=== PATIENT | male | born 1960 | race Caucasian/White ===

== ENCOUNTER → 2017-07-19 | Outpatient (CLI) | payer BC, OTHER ==
[~2017-07-19] MED LIST: AMIT10 PO; ATOR10 PO; Bactrim Ds Tab1 EACH PO; CEPH500 PO; DICL25ER; Depo-Testo100 MG/1 M IM; HYDACE5325 PO; LEVFLO250 PO; LISI5 PO; LORA2 PO; Lasix20 MG PO; OXYACE5T PO; OXYC15ER PO; Percocet 5-3251 EACH PO; TAMS.4ER PO; TELM20 PO; VERA80 PO; [UNRECOGNIZED DRUG - REMARK]
== END ==
LOC: LAB 11:20
DX: R68.82 Decreased libido (principal)
CPT/HCPCS: 84402

== ENCOUNTER → 2017-08-02 | Outpatient (CLI) | payer BC, OTHER | END | disposition home or self-care (01) | LOC: LAB 16:17 | DX: R68.82 Decreased libido (principal) | CPT/HCPCS: 84402 ==

== ENCOUNTER 2017-11-21 22:49 | Emergency (ER) | payer BC ==
[~2017-11-21] VITALS: Ht 177.8 cm; Wt 117.9 kg
[~2017-11-21 22:49] MED LIST changes: -Bactrim Ds Tab1 EACH PO; -CEPH500 PO; -Lasix20 MG PO
[2017-11-21 23:39] LABS: BASOPHILS ABSOLUTE AUTO 0.05 K/mm3 (0.00-0.23); BASOPHILS PERCENT AUTO 0 % (0-2); EOSINOPHILS ABSOLUTE AUTO 0.12 K/mm3 (0.00-0.68); EOSINOPHILS PERCENT AUTO 1 % (0-6); Hematocrit 41.9 % (37.0-53.0); Hemoglobin 13.5 g/dL (13.5-17.5); Mean Corpuscular HGB 28.4 pg (26.0-34.0); Mean Corpuscular HGB Conc 32.2 g/dL (31.5-36.5); Mean Corpuscular Volume 88 fL (80-100); Mean Platelet Volume 10.2 fL (9.1-12.4); Platelet Count 166 K/mm3 (150-400); RDW Standard Deviation 39.1 fL (35.1-46.3); Red Blood Cell Count 4.75 M/mm3 (4.30-5.90); White Blood Cell Count 11.51 K/mm3 (4.00-11.30)
[2017-11-21 23:40] LABS: IMMATURE GRAN ABSOLUTE AUTO 0.04 K/mm3 (0.00-0.10); IMMATURE GRAN PERCENT AUTO 0 % (0-1); LYMPHOCYTES ABSOLUTE AUTO 5.01 K/mm3 (0.84-5.20); LYMPHOCYTES PERCENT AUTO 44 % (21-46); MONOCYTES ABSOLUTE AUTO 2.15 K/mm3 (0.16-1.47); MONOCYTES PERCENT AUTO 19 % (4-13); NEUTROPHILS ABSOLUTE AUTO 4.14 K/mm3 (1.96-9.15); NEUTROPHILS PERCENT AUTO 36 % (41-73)
[2017-11-21 23:54] LABS: Anion Gap 5 mmol/L (6-16); Blood Urea Nitrogen 14 mg/dL (8-24); Bun/Creatinine Ratio 17.3 (12.0-20.0); CO2, Blood 29 mmol/L (21-32); Calcium, Blood 8.9 mg/dL (8.5-10.1); Chloride, Blood 105 mmol/L (98-108); Creatinine, Blood 0.81 mg/dL (0.60-1.20); Glomerular Filtration Rate >60 (60-); Glucose, Blood 114 mg/dL (70-99); Potassium, Blood 4.3 mmol/L (3.5-5.5); Sodium, Blood 139 mmol/L (136-145)
[2017-11-22] LABS: BASOPHILS ABSOLUTE MAN 0.11 K/mm3 (0.00-0.23); BASOPHILS PERCENT MAN 1 % (0-2); EOSINOPHILS ABSOLUTE MAN 0.46 K/mm3 (0.00-0.68); EOSINOPHILS PERCENT MAN 4 % (0-6); LYMPHOCYTES ABSOLUTE MAN 3.91 K/mm3 (0.84-5.20); LYMPHOCYTES PERCENT MAN 34 % (21-46); MONOCYTES ABSOLUTE MAN 0.92 K/mm3 (0.16-1.47); MONOCYTES PERCENT MAN 8 % (4-13); NEUTROPHILS ABSOLUTE MAN 3.68 K/mm3 (1.96-9.15); OTHER CELL PERCENT MAN 21 % (0-0); SEG NEUTROPHILS PERCENT MAN 32 % (41-73); TOTAL CELLS COUNTED 100
[2017-11-22] MEDS ORDERED: Lasix20 MG PO (00:45)
[2017-11-22] MEDS ORDERED: Bactrim Ds Tab1 EACH PO (00:45)
[2017-11-22] MEDS ORDERED: CEPH500 PO (00:45)
== END 2017-11-22 01:06 | disposition home or self-care (01) ==
LOC: ER 22:49
PROVIDERS: Emergency Medicine
DX: L03.116 Cellulitis of left lower limb (principal); R60.0 Localized edema; R79.9 Abnormal finding of blood chemistry, unspecified; I10 Essential (primary) hypertension; Z88.8 Allergy status to other drugs, medicaments and biological substances; Z79.899 Other long term (current) drug therapy; Z79.891 Long term (current) use of opiate analgesic
CPT/HCPCS: 80048; 83880; 85025; 96365; 99283; J0690

== ENCOUNTER 2019-01-19 20:13 | Emergency (ER) | payer OTHER ==
[~2019-01-19] VITALS: Ht 182.9 cm; Wt 122.5 kg
[~2019-01-19 20:13] MED LIST changes: +Bactrim Ds Tab1 EACH PO; +CEPH500 PO; +Lasix20 MG PO
[2019-01-19 20:47] LABS: BASOPHILS ABSOLUTE AUTO 0.04 K/mm3 (0.00-0.23); BASOPHILS PERCENT AUTO 1 % (0-2); EOSINOPHILS ABSOLUTE AUTO 0.14 K/mm3 (0.00-0.68); EOSINOPHILS PERCENT AUTO 4 % (0-6); Hematocrit 37.1 % (37.0-53.0); Hemoglobin 12.4 g/dL (13.5-17.5); IMMATURE GRAN ABSOLUTE AUTO 0.03 K/mm3 (0.00-0.10); IMMATURE GRAN PERCENT AUTO 1 % (0-1); LYMPHOCYTES ABSOLUTE AUTO 1.18 K/mm3 (0.84-5.20); LYMPHOCYTES PERCENT AUTO 30 % (21-46); MONOCYTES ABSOLUTE AUTO 0.67 K/mm3 (0.16-1.47); MONOCYTES PERCENT AUTO 17 % (4-13); Mean Corpuscular HGB 30.4 pg (26.0-34.0); Mean Corpuscular HGB Conc 33.4 g/dL (31.5-36.5); Mean Corpuscular Volume 91 fL (80-100); NEUTROPHILS ABSOLUTE AUTO 1.86 K/mm3 (1.96-9.15); NEUTROPHILS PERCENT AUTO 47 % (41-73); Platelet Count 171 K/mm3 (150-400); RDW Coefficient Variation 12.1 % (11.7-14.2); RDW Standard Deviation 40.3 fL (35.1-46.3); Red Blood Cell Count 4.08 M/mm3 (4.30-5.90); White Blood Cell Count 3.92 K/mm3 (4.00-11.30)
[2019-01-19 21:07] LABS: Alanine Aminotransfer (ALT/SGP 41 U/L (12-78); Albumin, Blood 3.7 g/dL (3.4-5.0); Albumin/Globulin Ratio 1.2 (0.8-1.8); Alk Phos 85 U/L (50-136); Anion Gap 5 mmol/L (6-16); Aspartate Aminotrans (AST/SGOT 24 U/L (12-37); Bilirubin, Total 0.3 mg/dL (0.1-1.0); Blood Urea Nitrogen 20 mg/dL (8-24); Bun/Creatinine Ratio 20.8 (12.0-20.0); CO2, Blood 29 mmol/L (21-32); Calcium, Blood 8.3 mg/dL (8.5-10.1); Chloride, Blood 104 mmol/L (98-108); Creatinine, Blood 0.96 mg/dL (0.60-1.20); Globulin, Blood 3.1 g/dL (2.2-4.0); Glomerular Filtration Rate >60 (60-); Glucose, Blood 128 mg/dL (70-99); Potassium, Blood 4.2 mmol/L (3.5-5.5); Sodium, Blood 138 mmol/L (136-145); Total Protein, Blood 6.8 g/dL (6.4-8.2); Troponin I <0.015 ng/mL (0.000-0.040)
[2019-01-19] MEDS ORDERED: SUBOXONE 4 MG-1 EACH (23:40)
[2019-01-20] MEDS ORDERED: Lasix40 MG PO (02:04)
== END 2019-01-20 02:22 | disposition home or self-care (01) ==
LOC: ER 20:13
PROVIDERS: Physician Assistant
DX: R60.0 Localized edema (principal); Z88.8 Allergy status to other drugs, medicaments and biological substances; Z79.899 Other long term (current) drug therapy; I10 Essential (primary) hypertension; E78.5 Hyperlipidemia, unspecified
CPT/HCPCS: 36415; 80053; 83880; 84484; 85025; 93005; 93010; 93971; 99284-25

== ENCOUNTER 2019-06-24 10:22 | Day surgery (SDC) | payer OTHER ==
[~2019-06-24] VITALS: Ht 177.8 cm; Wt 134.3 kg
[~2019-06-24 10:22] MED LIST changes: +Furosemide40 MG PO; +IBUP400 PO; +LISI20 PO; +Lasix40 MG PO; +POTA10T PO; +SUBOXONE 4 MG-1 EACH; +SUBOXONE 8 MG-1 EACH SL; +VERA240ER PO
--- NOTE | 2019-06-24 10:51 | NUR ---
History, Chart, Medications and Allergies reviewed before start of procedure. Patient confirms NPO status and agrees with scheduled surgery. Lungs clear T/O to Auscultation. Pre-Op teaching done. Pt verbalizes understanding. Patient States Post-Procedure ride home has been arranged.
--- NOTE | 2019-06-24 12:29 | NUR ---
06/24/19 1229 [place] History, Chart, Medications and Allergies reviewed before start of procedure.3-LEAD EKG REVIEWED WITH PHYSICIAN PRIOR TO START OF PROCEDURE.O2 VIA N/C INTACT THROUGHOUT SEDATION/PROCEDURE. MONITOR INTACT WITH CONTINUOUS PULSE OXIMETRY AND INTERMITTENT BP.PATIENT DETERMINED TO BE ASA APPROPRIATE FOR PROPOFOL SEDATION PRIOR TO START OF PROCEDURE BY .
== END 2019-06-24 13:15 | disposition home or self-care (01) ==
LOC: ORSCMMR 10:22 → ORD 11:15 → ORSCMMR 11:15
PROVIDERS: Internal Medicine Gastroenterology
PROC: 0DB48ZX Excision of Esophagogastric Junction, Via Natural or Artificial Opening Endoscopic, Diagnostic (ICD-10-PCS; principal; 2019-06-24 11:15)
PROC: 0D758ZZ Dilation of Esophagus, Via Natural or Artificial Opening Endoscopic (ICD-10-PCS; principal; 2019-06-24 11:15)
PROC: 0DB98ZX Excision of Duodenum, Via Natural or Artificial Opening Endoscopic, Diagnostic (ICD-10-PCS; principal; 2019-06-24 11:15)
PROC: 0DB58ZX Excision of Esophagus, Via Natural or Artificial Opening Endoscopic, Diagnostic (ICD-10-PCS; principal; 2019-06-24 11:15)
DX: R13.14 Dysphagia, pharyngoesophageal phase (principal); K22.2 Esophageal obstruction; I10 Essential (primary) hypertension; G47.33 Obstructive sleep apnea (adult) (pediatric); E78.5 Hyperlipidemia, unspecified; E66.01 Morbid (severe) obesity due to excess calories; Z68.41 Body mass index [BMI] 40.0-44.9, adult
CPT/HCPCS: 88305; 88342; C1726; J2001; J2250; J2704; J7120

== ENCOUNTER 2020-03-15 11:12 | Emergency (ER) | payer OTHER ==
[~2020-03-15] VITALS: Ht 177.8 cm; Wt 135.2 kg
[2020-03-15 11:58] LABS: BASOPHILS ABSOLUTE AUTO 0.05 K/mm3 (0.00-0.23); BASOPHILS PERCENT AUTO 1 % (0-2); EOSINOPHILS ABSOLUTE AUTO 0.25 K/mm3 (0.00-0.68); EOSINOPHILS PERCENT AUTO 4 % (0-6); Hematocrit 43.2 % (37.0-53.0); Hemoglobin 13.7 g/dL (13.5-17.5); IMMATURE GRAN ABSOLUTE AUTO 0.04 K/mm3 (0.00-0.10); IMMATURE GRAN PERCENT AUTO 1 % (0-1); LYMPHOCYTES ABSOLUTE AUTO 2.43 K/mm3 (0.84-5.20); LYMPHOCYTES PERCENT AUTO 36 % (21-46); MONOCYTES ABSOLUTE AUTO 0.88 K/mm3 (0.16-1.47); MONOCYTES PERCENT AUTO 13 % (4-13); Mean Corpuscular HGB 28.1 pg (26.0-34.0); Mean Corpuscular HGB Conc 31.7 g/dL (31.5-36.5); Mean Corpuscular Volume 89 fL (80-100); Mean Platelet Volume 9.7 fL (9.1-12.4); NEUTROPHILS ABSOLUTE AUTO 3.03 K/mm3 (1.96-9.15); NEUTROPHILS PERCENT AUTO 45 % (41-73); Platelet Count 161 K/mm3 (150-400); RDW Coefficient Variation 12.5 % (11.7-14.2); RDW Standard Deviation 40.7 fL (35.1-46.3); Red Blood Cell Count 4.87 M/mm3 (4.30-5.90); White Blood Cell Count 6.68 K/mm3 (4.00-11.30)
[2020-03-15 12:10] LABS: Alanine Aminotransfer (ALT/SGP 35 U/L (12-78); Albumin, Blood 3.9 g/dL (3.4-5.0); Albumin/Globulin Ratio 1.1 (0.8-1.8); Alk Phos 91 U/L (50-136); Anion Gap 3 mmol/L (6-16); Aspartate Aminotrans (AST/SGOT 18 U/L (12-37); Bilirubin, Total 0.6 mg/dL (0.1-1.0); Blood Urea Nitrogen 15 mg/dL (8-24); Bun/Creatinine Ratio 15.8 (12.0-20.0); CO2, Blood 30 mmol/L (21-32); Calcium, Blood 8.9 mg/dL (8.5-10.1); Chloride, Blood 104 mmol/L (98-108); Creatinine, Blood 0.95 mg/dL (0.60-1.20); Globulin, Blood 3.4 g/dL (2.2-4.0); Glomerular Filtration Rate >60 (60-); Glucose, Blood 109 mg/dL (70-99); Potassium, Blood 4.1 mmol/L (3.5-5.5); Sodium, Blood 137 mmol/L (136-145); Total Protein, Blood 7.3 g/dL (6.4-8.2); Troponin I <0.015 ng/mL (0.000-0.040)
[2020-03-15] MEDS ORDERED: Docusate Sodiu250 MG PO (16:14)
[2020-03-15] MEDS ORDERED: HYDR1TAB94 PO (16:14)
[2020-03-15] MEDS ORDERED: VALA500 PO (16:14)
[2020-03-16] MEDS ORDERED: Colace250 MG PO (10:43)
[2020-03-16] MEDS ORDERED: HYDR1TAB94 PO (10:43)
[2020-03-16] MEDS ORDERED: Valtrex1000 MG PO (10:48)
== END 2020-03-15 16:53 | disposition home or self-care (01) ==
LOC: ER 11:12
PROVIDERS: Emergency Medicine
DX: B02.9 Zoster without complications (principal); I10 Essential (primary) hypertension; E78.00 Pure hypercholesterolemia, unspecified; N40.0 Benign prostatic hyperplasia without lower urinary tract symptoms; Z88.8 Allergy status to other drugs, medicaments and biological substances; Z79.899 Other long term (current) drug therapy
CPT/HCPCS: 36415; 80053; 84484; 85025; 93005; 93010; 96374; 96375; 99283-25; J2270; J2405

== ENCOUNTER 2020-12-23 18:45 | Emergency (ER) | payer OTHER ==
[~2020-12-23] VITALS: Ht 180.3 cm; Wt 127.0 kg
[~2020-12-23 18:45] MED LIST changes: +Colace250 MG PO; +Docusate Sodiu250 MG PO; -Furosemide40 MG PO; +HYDR1TAB94 PO; -IBUP400 PO; -LISI20 PO; -SUBOXONE 8 MG-1 EACH SL; +VALA500 PO; -VERA240ER PO; +Valtrex1000 MG PO
[2020-12-23 19:17] LABS: BASOPHILS ABSOLUTE AUTO 0.07 K/mm3 (0.00-0.23); BASOPHILS PERCENT AUTO 1 % (0-2); EOSINOPHILS ABSOLUTE AUTO 0.25 K/mm3 (0.00-0.68); EOSINOPHILS PERCENT AUTO 3 % (0-6); Hemoglobin 12.1 g/dL (13.5-17.5); IMMATURE GRAN ABSOLUTE AUTO 0.04 K/mm3 (0.00-0.10); IMMATURE GRAN PERCENT AUTO 1 % (0-1); LYMPHOCYTES ABSOLUTE AUTO 3.12 K/mm3 (0.84-5.20); LYMPHOCYTES PERCENT AUTO 38 % (21-46); MONOCYTES ABSOLUTE AUTO 0.93 K/mm3 (0.16-1.47); MONOCYTES PERCENT AUTO 11 % (4-13); Mean Corpuscular HGB 28.4 pg (26.0-34.0); Mean Corpuscular HGB Conc 32.7 g/dL (31.5-36.5); Mean Corpuscular Volume 87 fL (80-100); NEUTROPHILS ABSOLUTE AUTO 3.77 K/mm3 (1.96-9.15); NEUTROPHILS PERCENT AUTO 46 % (41-73); Platelet Count 161 K/mm3 (150-400); RDW Coefficient Variation 13.2 % (11.7-14.2); RDW Standard Deviation 41.1 fL (35.1-46.3); Red Blood Cell Count 4.26 M/mm3 (4.30-5.90); White Blood Cell Count 8.18 K/mm3 (4.00-11.30)
[2020-12-23 19:41] LABS: Alanine Aminotransfer (ALT/SGP 31 U/L (12-78); Albumin, Blood 3.8 g/dL (3.4-5.0); Albumin/Globulin Ratio 1.2 (0.8-1.8); Alk Phos 80 U/L (50-136); Anion Gap 7 mmol/L (6-16); Aspartate Aminotrans (AST/SGOT 16 U/L (12-37); Bilirubin, Total 0.4 mg/dL (0.1-1.0); Blood Urea Nitrogen 20 mg/dL (8-24); Bun/Creatinine Ratio 18.3 (12.0-20.0); CO2, Blood 24 mmol/L (21-32); Chloride, Blood 106 mmol/L (98-108); Creatinine, Blood 1.09 mg/dL (0.60-1.20); Globulin, Blood 3.2 g/dL (2.2-4.0); Glomerular Filtration Rate >60 (60-); Glucose, Blood 100 mg/dL (70-99); Sodium, Blood 137 mmol/L (136-145); Troponin I <0.015 ng/mL (0.000-0.040)
[2020-12-23] MEDS ORDERED: IBUP800 PO (21:28)
[2020-12-23] MEDS ORDERED: POTA10T PO (21:29)
[2020-12-23] MEDS ORDERED: METFORMIN HCL500 M2 PO (21:32)
[2020-12-23] MEDS ORDERED: ATOR10 PO (21:33)
[2020-12-23] MEDS ORDERED: ZESTRIL40 M1 PO (21:40)
[2020-12-23] MEDS ORDERED: OMEP20ER PO (21:41)
[2020-12-23] MEDS ORDERED: FLUTICASONE PRO16 GM (21:42)
[2020-12-23] MEDS ORDERED: SUBOXONE 8 MG-1 EACH SL (21:42)
[2020-12-23] MEDS ORDERED: VERAPAMIL ER120 M1 PO (21:43)
[2020-12-23] MEDS ORDERED: Furosemide40 MG PO (21:44)
[2020-12-23] MEDS ORDERED: Adipex-P37.5 MG PO (21:44)
[2020-12-23] MEDS ORDERED: DIPH50 PO (21:46)
== END 2020-12-23 22:45 | disposition home or self-care (01) ==
LOC: ER 18:45
PROVIDERS: Physician Assistant
DX: R06.00 Dyspnea, unspecified (principal); R60.0 Localized edema; I10 Essential (primary) hypertension; E78.00 Pure hypercholesterolemia, unspecified; Z79.899 Other long term (current) drug therapy; Z88.8 Allergy status to other drugs, medicaments and biological substances
CPT/HCPCS: 36415; 71046; 80053; 83880; 84484; 85025; 93005; 93010; 96374; 99284-25; A9270; J1940

== ENCOUNTER 2021-02-05 13:23 | Emergency (ER) | payer OTHER ==
[~2021-02-05 13:23] MED LIST changes: +Adipex-P37.5 MG PO; +DIPH50 PO; +FLUTICASONE PRO16 GM; +Furosemide40 MG PO; +IBUP800 PO; +METFORMIN HCL500 M2 PO; +OMEP20ER PO; +SUBOXONE 8 MG-1 EACH SL; +VERAPAMIL ER120 M1 PO; +ZESTRIL40 M1 PO
== END 2021-02-05 14:19 | disposition left against medical advice (07) ==
LOC: ER 13:23
DX: Z53.21 Procedure and treatment not carried out due to patient leaving prior to being seen by health care provider (principal)

== ENCOUNTER → 2021-03-02 | Outpatient (CLI) | payer OTHER | END | disposition home or self-care (01) | LOC: LAB SHORT 08:00 → LAB 08:00 | DX: K14.0 Glossitis (principal); B48.8 Other specified mycoses | CPT/HCPCS: 88305; 88312 ==

== ENCOUNTER 2021-10-21 11:18 | Emergency (ER) | payer OTHER ==
[~2021-10-21] VITALS: Ht 180.3 cm; Wt 131.5 kg
== END 2021-10-21 16:31 | disposition home or self-care (01) ==
LOC: ER 11:18
DX: R07.81 Pleurodynia (principal); I10 Essential (primary) hypertension; Z79.899 Other long term (current) drug therapy
CPT/HCPCS: 71101; 96372; 99283-25; A9270; J1885

== ENCOUNTER → 2022-01-20 | Outpatient (CLI) | payer OTHER | END | disposition home or self-care (01) | LOC: LAB SHORT 13:19 → LAB 13:19 | DX: R30.0 Dysuria (principal) | CPT/HCPCS: 87077; 87086; 87186 ==

== ENCOUNTER → 2022-04-07 | Outpatient (CLI) | payer OTHER ==
[~2022-04-07] MED LIST changes: +CLIN150 PO; +VISBIOME 112.51 EACH PO
== END | disposition home or self-care (01) ==
LOC: LAB 09:30 → LAB SHORT 09:30
DX: R30.0 Dysuria (principal)
CPT/HCPCS: 87086

== ENCOUNTER 2022-12-18 01:55 | Inpatient (IN) | payer OTHER ==
[~2022-12-18] VITALS: Ht 180.3 cm; Wt 137.8 kg
[2022-12-18 02:24] LABS: Hematocrit 41.7 % (37.0-53.0); Mean Corpuscular HGB 30.2 pg (26.0-34.0); Mean Corpuscular HGB Conc 33.6 g/dL (31.5-36.5); Mean Corpuscular Volume 90 fL (80-100); Mean Platelet Volume 10.1 fL (9.1-12.4); Platelet Count 143 K/mm3 (150-400); RDW Coefficient Variation 12.6 % (11.7-14.2); RDW Standard Deviation 41.5 fL (35.1-46.3); Red Blood Cell Count 4.63 M/mm3 (4.30-5.90)
[2022-12-18 02:41] LABS: Albumin, Blood 3.8 g/dL (3.4-5.0); Albumin/Globulin Ratio 1.4 (0.8-1.8); Bilirubin, Total 0.7 mg/dL (0.1-1.0); Bun/Creatinine Ratio 15.5 (12.0-20.0); Calcium, Blood 8.6 mg/dL (8.5-10.1); Creatinine, Blood 1.48 mg/dL (0.60-1.20); Globulin, Blood 2.8 g/dL (2.2-4.0); Potassium, Blood 3.5 mmol/L (3.5-5.5); Total Protein, Blood 6.6 g/dL (6.4-8.2)
[2022-12-18 02:45] LABS: BAND PERCENT MAN 16 % (0-8); BASOPHILS PERCENT MAN 0 % (0-2); EOSINOPHILS PERCENT MAN 0 % (0-6); LYMPHOCYTES ABSOLUTE MAN 1.16 K/mm3 (0.84-5.20); LYMPHOCYTES PERCENT MAN 12 % (21-46); MONOCYTES ABSOLUTE MAN 0.67 K/mm3 (0.16-1.47); MONOCYTES PERCENT MAN 7 % (4-13); MYELOCYTE ABSOLUTE MAN 0.19 K/mm3 (0.00-0.00); MYELOCYTE PERCENT MAN 2 % (0-0); NEUTROPHILS ABSOLUTE MAN 7.66 K/mm3 (1.96-9.15); SEG NEUTROPHILS PERCENT MAN 63 % (41-73); TOTAL CELLS COUNTED 100
[2022-12-18 03:37] LABS: Magnesium, Blood 1.2 mg/dL (1.6-2.4)
[2022-12-18 05:45] VITALS: BP 107/67
--- NOTE | 2022-12-18 06:41 | NUR ---
ADMISSION NOTE PATIENT ALERT AND ORIENTED X4. PATIENT REPORTS THAT HE DRANK LAST NIGHT, PATIENT IS CURRENTLY SLURRING HIS WORDS AND FALLING ASLEEP WHILE MID SENTENCE. PATIENT IS DESATING WHEN SLEEPING, REPORTS THAT HE WEARS OXYGEN WHILE SLEEPING, UNSURE OF HOW MUCH. WILL CONTINUE TO MONITOR. CALL LIGHT WITHIN REACH.
[2022-12-18 06:47] LABS: Hematocrit 36.3 % (37.0-53.0); Hemoglobin 12.2 g/dL (13.5-17.5); Mean Corpuscular HGB 30.3 pg (26.0-34.0); Mean Corpuscular HGB Conc 33.6 g/dL (31.5-36.5); Mean Corpuscular Volume 90 fL (80-100); Mean Platelet Volume 10.3 fL (9.1-12.4); Platelet Count 128 K/mm3 (150-400); RDW Coefficient Variation 12.7 % (11.7-14.2); RDW Standard Deviation 42.1 fL (35.1-46.3); Red Blood Cell Count 4.03 M/mm3 (4.30-5.90); White Blood Cell Count 14.09 K/mm3 (4.00-11.30)
[2022-12-18 07:03] LABS: BAND PERCENT MAN 12 % (0-8); BASOPHILS PERCENT MAN 0 % (0-2); EOSINOPHILS PERCENT MAN 0 % (0-6); LYMPHOCYTES ABSOLUTE MAN 0.84 K/mm3 (0.84-5.20); LYMPHOCYTES PERCENT MAN 6 % (21-46); MONOCYTES ABSOLUTE MAN 0.28 K/mm3 (0.16-1.47); MONOCYTES PERCENT MAN 2 % (4-13); NEUTROPHILS ABSOLUTE MAN 12.96 K/mm3 (1.96-9.15); SEG NEUTROPHILS PERCENT MAN 80 % (41-73); TOTAL CELLS COUNTED 100
[2022-12-18 07:04] LABS: Albumin, Blood 3.1 g/dL (3.4-5.0); Albumin/Globulin Ratio 1.2 (0.8-1.8); Bilirubin, Total 0.6 mg/dL (0.1-1.0); Bun/Creatinine Ratio 16.2 (12.0-20.0); Calcium, Blood 7.8 mg/dL (8.5-10.1); Creatinine, Blood 1.54 mg/dL (0.60-1.20); Globulin, Blood 2.5 g/dL (2.2-4.0); Potassium, Blood 3.5 mmol/L (3.5-5.5); Total Protein, Blood 5.6 g/dL (6.4-8.2)
[2022-12-18 07:06] LABS: Magnesium, Blood 1.1 mg/dL (1.6-2.4)
[2022-12-18 07:15] VITALS: BP 111/58
--- NOTE | 2022-12-18 08:04 | NUR ---
Received in room report from Noc RN. Patient is awake in bed and is requesting to use bathroom . He is on RA and sats >90%. He is a SBA to bathroom and back to recliner in room for breakfast. He has 20ga IV to LAC and is flushed and SL'd. He has swelling to bilateral LE's and cellulitus to RLE. Patient stated he had been drinking prior to arrival and still is slightly intoxicated. Call light within reach and patient has frequent observation from door.
--- NOTE | 2022-12-18 11:39 | NUR ---
Dr Arredondo has been by and assessed patient and made mad no tele. CIWA is 7-8. He remains on RA and sats >90%. He remains up in chair and resting. [id number] denies any current needs. He has been calling appropriately. Urinal and call light within reach. No changes to LE and the cellulitus.
[2022-12-18 11:46] VITALS: BP 109/69
--- NOTE | 2022-12-18 15:30 | NUR ---
Patient has been reasting in bed without any complaints. He has been up with SBA to bathroom an dback and tolerated well. He has contacted family and let them know he in in PCU. He remains on RA and sats >90%. He stated that he spoke with god and he has to stop drinking and sounded very sincere. he has been tolerating IV meds without difficulty. LARISSA Q2. Cooperative with care.
[2022-12-18 17:52] VITALS: BP 127/72
--- NOTE | 2022-12-18 17:56 | NUR ---
Patient remains alert and oriented and is able to communicate needs. He is omn RA and sats >90%. He is up with SBA to bathroom. He tolerates oral intake and called Dr Hernández and dc'd fluids. His bilateral LE swelling and increased reddness to right side. His CIWA is 5 and decreaseing. He is med no tele and awaiting room .
[2022-12-18 19:59] VITALS: BP 127/96
[2022-12-18 23:19] VITALS: BP 131/90
[2022-12-19 03:54] VITALS: BP 107/54
[2022-12-19 04:15] LABS: Hemoglobin 12.1 g/dL (13.5-17.5); Mean Corpuscular HGB Conc 33.6 g/dL (31.5-36.5); Mean Corpuscular Volume 89 fL (80-100); Mean Platelet Volume 10.2 fL (9.1-12.4); Platelet Count 117 K/mm3 (150-400); RDW Coefficient Variation 12.7 % (11.7-14.2); RDW Standard Deviation 42.1 fL (35.1-46.3); Red Blood Cell Count 4.03 M/mm3 (4.30-5.90); White Blood Cell Count 14.32 K/mm3 (4.00-11.30)
[2022-12-19 04:24] LABS: Source, Urine Clean Catch
[2022-12-19 04:27] LABS: Albumin, Blood 3.2 g/dL (3.4-5.0); Anion Gap 9 mmol/L (6-16); Blood Urea Nitrogen 22 mg/dL (8-24); Bun/Creatinine Ratio 23.4 (12.0-20.0); CO2, Blood 21 mmol/L (21-32); Calcium, Blood 8.1 mg/dL (8.5-10.1); Chloride, Blood 103 mmol/L (98-108); Creatinine, Blood 0.94 mg/dL (0.60-1.20); Glomerular Filtration Rate 91 (60-); Glucose, Blood 134 mg/dL (70-99); Magnesium, Blood 1.8 mg/dL (1.6-2.4); Phosphorus, Blood 2.5 mg/dL (2.5-4.9); Potassium, Blood 3.5 mmol/L (3.5-5.5); Sodium, Blood 133 mmol/L (136-145)
[2022-12-19 04:29] LABS: Bilirubin, Urine Neg (Neg); Blood, Urine Neg (Neg); Glucose Qualitative, Urine Neg (Neg); Ketones, Urine Neg (Neg); Leukocyte Esterase, Urine Neg (Neg); Nitrite, Urine Neg (Neg); Protein, Urine 2+ (Neg); Specific Gravity, Urine 1.015 (1.003-1.022); Urobilinogen, Urine NORM (Normal)
[2022-12-19 04:31] LABS: Appearance, Urine Clear (Clear); Color, Urine Yellow (P-Yellow)
[2022-12-19 04:33] LABS: BAND PERCENT MAN 16 % (0-8); BASOPHILS ABSOLUTE MAN 0.14 K/mm3 (0.00-0.23); BASOPHILS PERCENT MAN 1 % (0-2); EOSINOPHILS PERCENT MAN 0 % (0-6); LYMPHOCYTES ABSOLUTE MAN 0.57 K/mm3 (0.84-5.20); LYMPHOCYTES PERCENT MAN 4 % (21-46); METAMYELOCYTE ABSOLUTE MAN 0.14 K/mm3 (0.00-0.00); METAMYELOCYTE PERCENT MAN 1 % (0-0); MONOCYTES ABSOLUTE MAN 0.57 K/mm3 (0.16-1.47); MONOCYTES PERCENT MAN 4 % (4-13); NEUTROPHILS ABSOLUTE MAN 12.88 K/mm3 (1.96-9.15); SEG NEUTROPHILS PERCENT MAN 74 % (41-73); TOTAL CELLS COUNTED 100
[2022-12-19 04:35] LABS: Bacteria Not Seen /hpf; Granular Casts 0-2 /lpf (0); Red Blood Cells, Urine Not Seen /hpf (0-2); Squamous Epithelial Cells Rare /hpf (Few); White Blood Cells, Urine Not Seen /hpf (0-5)
--- NOTE | 2022-12-19 04:55 | NUR ---
SHIFT SUMMARY PT IS A/Ox4 AND COOPERATIVE WITH CARE PROVIDED BY MEMBERS OF STAFF. ANSWERS QUESTIONS APPROPRIATELY AND ABLE TO MAKE HIS NEEDS KNOWN. NO ACUTE EVENTS OVERNIGHT. CARDIAC SYKES, REMAINS IN SR-ST 90-100'S WITH NO C/O CP OR PRESSURE T/O THE NIGHT. SBP HAS REMAINED STABLE WELL. RESPIRATORY SYKES, MAINTAINS SPO2 >92% ON RA WITH NO C/O SOB OR DYSPNEA. CPAP USED AT NOC. ABLE TO IND. VOID INTO URINAL. ABLE TO ABULATE TO CHAIR WITH 1 STAFF ASSIST. RRL PAIN/ERYTHEMIA CONTINUES TO BE PRESENT, PAIN HAS BEEN ADEQUATELY MANAGED ORDERED VIA EMAR. OUTLINE OF REDNESS MARKED. CIWA'S HAVE BEEN <5 T/O THE NIGHT. NO NEW ORDERS AT THIS TIME, WILL REPORT TO ONCOMING RN. LUIS RICHMOND OF THIS NOTE
[2022-12-19 08:33] VITALS: BP 146/59
[2022-12-19 16:41] VITALS: BP 138/73
--- NOTE | 2022-12-19 17:19 | NUR ---
NO NEW CONCERNS THIS SHIFT. A/0X4, UP WITH SBA TO CHAIR, GAIT STEADY. ELEVATING R LEG WITH PILLOWS. ALTERNATING BETWEEIN OXYCODONE AND TYLENOL TO TREAT PAIN WITH STATED RELIEF. TOLERATING ADA DIET, COVERAGE PER SS. PATIENT HAD GOOD U/O WITH LASIX. VSS, ON RA. PLEASANT AND COOPERATIVE WITH CARE, CALLS APPROPRIATELY FOR ASSISTANCE.
[2022-12-19 21:33] VITALS: BP 131/74
[2022-12-20 03:43] VITALS: BP 120/58
[2022-12-20 04:01] LABS: Hematocrit 35.6 % (37.0-53.0); Hemoglobin 12.2 g/dL (13.5-17.5); Mean Corpuscular HGB 30.4 pg (26.0-34.0); Mean Corpuscular HGB Conc 34.3 g/dL (31.5-36.5); Mean Corpuscular Volume 89 fL (80-100); Mean Platelet Volume 10.2 fL (9.1-12.4); Platelet Count 128 K/mm3 (150-400); RDW Coefficient Variation 12.8 % (11.7-14.2); RDW Standard Deviation 41.4 fL (35.1-46.3); Red Blood Cell Count 4.01 M/mm3 (4.30-5.90); White Blood Cell Count 11.08 K/mm3 (4.00-11.30)
[2022-12-20 04:23] LABS: Albumin, Blood 2.9 g/dL (3.4-5.0); Anion Gap 8 mmol/L (6-16); Blood Urea Nitrogen 17 mg/dL (8-24); Bun/Creatinine Ratio 20.8 (12.0-20.0); CO2, Blood 25 mmol/L (21-32); Calcium, Blood 8.7 mg/dL (8.5-10.1); Chloride, Blood 103 mmol/L (98-108); Creatinine, Blood 0.82 mg/dL (0.60-1.20); Glomerular Filtration Rate 98 (60-); Glucose, Blood 135 mg/dL (70-99); Phosphorus, Blood 2.1 mg/dL (2.5-4.9); Potassium, Blood 3.6 mmol/L (3.5-5.5); Sodium, Blood 136 mmol/L (136-145)
[2022-12-20 04:26] LABS: BAND PERCENT MAN 6 % (0-8); BASOPHILS PERCENT MAN 0 % (0-2); EOSINOPHILS PERCENT MAN 0 % (0-6); LYMPHOCYTES ABSOLUTE MAN 0.88 K/mm3 (0.84-5.20); LYMPHOCYTES PERCENT MAN 8 % (21-46); MONOCYTES ABSOLUTE MAN 0.11 K/mm3 (0.16-1.47); MONOCYTES PERCENT MAN 1 % (4-13); NEUTROPHILS ABSOLUTE MAN 10.08 K/mm3 (1.96-9.15); SEG NEUTROPHILS PERCENT MAN 85 % (41-73); TOTAL CELLS COUNTED 100
--- NOTE | 2022-12-20 06:06 | NUR ---
SHIFT SUMMARY PATIENT ALERT AND ORIENTED X4. MEDICATED PER EMAR FOR PAIN. PATIENT REPORTS THAT THE PAIN IN HIS RIGHT LEG FELT WORSE OVERNIGHT AND HE WAS UNABLE TO GET MUCH SLEEP. PATIENT DENIES ANY CHEST PAIN OR SHORTNESS OF BREATH. VITAL SIGNS STABLE. NO ACUTE ISSUES NOTED OVERNIGHT. WILL CONTINUE TO MONITOR. CALL LIGHT WITHIN REACH.
[2022-12-20 07:21] VITALS: BP 112/56
[2022-12-20 14:23] VITALS: BP 143/79
--- NOTE | 2022-12-20 14:56 | NUR ---
ASSUMED CARE OF PATIENT UPON HIS ARRIVAL FROM PCU 11 AT 1424. ABLE TO TRANSFER FROM W/C TO BED AND WALK TO INDEPENDENTLY, ALBEIT FAVORING THE RLE. STATED HIS PAIN IS CONTROLLED AT THIS TIME. ELEVATED RLE ON 2 PILLOWS. VANCOMYCIN INFUSING. RLE ERYTHEMA IS SLIGHTLY OUTSIDE MARKED BORDER AND IS QUITE EDEMATOUS. CALL LIGHT IN REACH.
--- NOTE | 2022-12-20 18:53 | NUR ---
SHIFT SUMMARY: NO ACUTE EVENTS. ERYTHEMA ON RLE APPEARS SLIGHTLY IMPROVED AFTER FIRST DOSE OF VANCOMYCIN. MEDICATED FOR PAIN WITH TYLENOL AND OXYCODONE WITH SOME RELIEF. NEEDS REMINDERS TO KEEP RLE ELEVATED. TOLERATING PO INTAKE.
[2022-12-20 19:14] VITALS: BP 115/76
--- NOTE | 2022-12-20 19:22 | NUR ---
AWAKE, LAYING IN BED. RLE SWOLLEN AND RED. AM RN VOICED PT CONDITION IS IMPROVING. LEG LESS SWOLLEN. CALL LIGHT IN REACH
[2022-12-21 02:13] VITALS: BP 121/73
--- NOTE | 2022-12-21 03:18 | NUR ---
BASS MECHANISM MAKER SUMMARY SLIGHT FEVER, OTHERWISE VSS. CONTINUES TO RECEIVE ANTIBIOTICS FOR CELLULITIS OF RLE. RLE REMAINS SWOLLEN WITH REDNESS - MARKED. RLE ELEVATED ON PILLOWS. HAS BEEN UP TO THE RESTROOM BY SELF. ANALGESICS ADMIN ORDERED FOR PAIN. SEE MAR FOR DETAILS. HAS BEEN RESTING QUIETLY AT INTERVALS. CALL LIGHT IN REACH. WILL CONTINUE TO MONITOR.
[2022-12-21 04:44] LABS: Hematocrit 36.2 % (37.0-53.0); Hemoglobin 12.4 g/dL (13.5-17.5); Mean Corpuscular HGB 30.2 pg (26.0-34.0); Mean Corpuscular HGB Conc 34.3 g/dL (31.5-36.5); Mean Corpuscular Volume 88 fL (80-100); Mean Platelet Volume 10.4 fL (9.1-12.4); Platelet Count 154 K/mm3 (150-400); RDW Coefficient Variation 12.7 % (11.7-14.2); RDW Standard Deviation 40.6 fL (35.1-46.3)
[2022-12-21 05:07] LABS: Albumin, Blood 2.8 g/dL (3.4-5.0); Anion Gap 8 mmol/L (6-16); Blood Urea Nitrogen 14 mg/dL (8-24); Bun/Creatinine Ratio 18.2 (12.0-20.0); CO2, Blood 24 mmol/L (21-32); Calcium, Blood 9.1 mg/dL (8.5-10.1); Chloride, Blood 105 mmol/L (98-108); Creatinine, Blood 0.77 mg/dL (0.60-1.20); Glomerular Filtration Rate 100 (60-); Glucose, Blood 126 mg/dL (70-99); Magnesium, Blood 2.1 mg/dL (1.6-2.4); Phosphorus, Blood 2.7 mg/dL (2.5-4.9); Potassium, Blood 3.7 mmol/L (3.5-5.5); Sodium, Blood 137 mmol/L (136-145)
[2022-12-21 05:23] LABS: BAND PERCENT MAN 2 % (0-8); BASOPHILS PERCENT MAN 0 % (0-2); EOSINOPHILS ABSOLUTE MAN 0.11 K/mm3 (0.00-0.68); EOSINOPHILS PERCENT MAN 1 % (0-6); LYMPHOCYTES ABSOLUTE MAN 1.59 K/mm3 (0.84-5.20); LYMPHOCYTES PERCENT MAN 14 % (21-46); MONOCYTES ABSOLUTE MAN 0.57 K/mm3 (0.16-1.47); MONOCYTES PERCENT MAN 5 % (4-13); MYELOCYTE ABSOLUTE MAN 0.11 K/mm3 (0.00-0.00); MYELOCYTE PERCENT MAN 1 % (0-0); SEG NEUTROPHILS PERCENT MAN 77 % (41-73); TOTAL CELLS COUNTED 100
--- NOTE | 2022-12-21 06:44 | NUR ---
AWAKE, SITTING AT BEDSIDE. VOICED SEVERE PAIN OF RLE. ANALGESIC GIVEN, SEE HEDY. PT VOICED HE WOULD SPEAK WITH THE MD THIS AM FOR PAIN MED EVAL TO ADDRESS HIS DISCOMFORT. CALL LIGHT IN REACH.
[2022-12-21 07:27] VITALS: BP 136/87
--- NOTE | 2022-12-21 18:09 | NUR ---
SHIFT SUMMARY PT A&O X 4. VSS. APPETITE GOOD. NO ACUTE CHANGES THIS SHIFT. IS BEING COVERED WITH IV ANTI BIOTICS FOR R LEG CELLULITIS. NEW PIV STARTED TODAY IN R FA. PT IS INDEPENDENT IN THE ROOM FOR RESTROOM USE. BEING DIURESED WITH GOOD EFFECT. IS USING RESTROOM OR THE URINAL INDEPENDENTLY. MEDICATED FOR C/O PAIN PER EMAR WITH GOOD EFFECT STATED BY PT.
[2022-12-21 19:17] VITALS: BP 139/73
[2022-12-22 02:41] VITALS: BP 142/80
--- NOTE | 2022-12-22 04:04 | NUR ---
SHIFT SUMMARY PATIENT HAD NO ACUTE CHANGES. AXOX 4 AND SBA W/CANE TO BR. USES URINAL AT BEDSIDE. REPORTS BLE PAIN AND OXYCODONE 10 MG GIVEN PER EMAR. DENIES CHEST PAIN, SOB, AND N/V. REFUSED CPAP PER RT. VSS/AFEBRILE. PIV REMAIN INTACT. IV ABX INFUSED. IN CHAIR OR BED T/O SHIFT. CALL LIGHT IN REACH. BED IN LOWEST POSITION. WILL CONTINUE TO MONITOR UNTIL DAY SHIFT NURSE ASSUMES CARE.
[2022-12-22 04:54] LABS: BASOPHILS ABSOLUTE AUTO 0.08 K/mm3 (0.00-0.23); BASOPHILS PERCENT AUTO 1 % (0-2); EOSINOPHILS ABSOLUTE AUTO 0.22 K/mm3 (0.00-0.68); EOSINOPHILS PERCENT AUTO 3 % (0-6); Hematocrit 37.7 % (37.0-53.0); Hemoglobin 12.8 g/dL (13.5-17.5); IMMATURE GRAN ABSOLUTE AUTO 0.42 K/mm3 (0.00-0.10); IMMATURE GRAN PERCENT AUTO 5 % (0-1); LYMPHOCYTES ABSOLUTE AUTO 1.84 K/mm3 (0.84-5.20); LYMPHOCYTES PERCENT AUTO 22 % (21-46); MONOCYTES ABSOLUTE AUTO 1.02 K/mm3 (0.16-1.47); MONOCYTES PERCENT AUTO 12 % (4-13); Mean Corpuscular HGB 29.6 pg (26.0-34.0); Mean Corpuscular Volume 87 fL (80-100); Mean Platelet Volume 10.3 fL (9.1-12.4); NEUTROPHILS ABSOLUTE AUTO 4.83 K/mm3 (1.96-9.15); NEUTROPHILS PERCENT AUTO 57 % (41-73); Platelet Count 176 K/mm3 (150-400); RDW Coefficient Variation 12.6 % (11.7-14.2); RDW Standard Deviation 40.2 fL (35.1-46.3); Red Blood Cell Count 4.32 M/mm3 (4.30-5.90); White Blood Cell Count 8.41 K/mm3 (4.00-11.30)
[2022-12-22 05:15] LABS: Albumin, Blood 2.9 g/dL (3.4-5.0); Anion Gap 8 mmol/L (6-16); Blood Urea Nitrogen 15 mg/dL (8-24); Bun/Creatinine Ratio 16.8 (12.0-20.0); CO2, Blood 27 mmol/L (21-32); Calcium, Blood 9.2 mg/dL (8.5-10.1); Chloride, Blood 103 mmol/L (98-108); Creatinine, Blood 0.89 mg/dL (0.60-1.20); Glomerular Filtration Rate 96 (60-); Glucose, Blood 118 mg/dL (70-99); Potassium, Blood 3.4 mmol/L (3.5-5.5); Sodium, Blood 138 mmol/L (136-145)
[2022-12-22 07:50] VITALS: BP 118/98
[2022-12-22 13:28] LABS: Vancomycin, Trough 12.2 ug/mL (5.0-10.0)
[2022-12-22 15:24] VITALS: BP 138/84
--- NOTE | 2022-12-22 18:10 | NUR ---
SHIFT SUMMARY NO ACUTE CHANGES THIS SHIFT. A&O X 4. VSS. SAT UP IN CHAIR MOST OF SHIFT WITH R LEG UP ON STOOL WITH PILLOWS. ENCOURAGED TO KEEP LEG ELEVATED. IV ANTI BIOTICS GIVEN PER EMAR. BLOOD SUGARS WITHIN NORMAL RANGE NOT REQUIRING INSULIN COVERAGE. MEDICATED FOR PAIN/DISCOMFORT PER EMAR WITH GOOD RELIEF STATED BY PT. APPETITE IS GOOD. IS INDEPENDENT IN THE ROOM FOR RESTOOM USE.
[2022-12-22 19:39] VITALS: BP 139/78
[2022-12-23 02:58] VITALS: BP 130/75
[2022-12-23 05:12] LABS: Hematocrit 37.4 % (37.0-53.0); Mean Corpuscular HGB 30.2 pg (26.0-34.0); Mean Corpuscular HGB Conc 34.8 g/dL (31.5-36.5); Mean Corpuscular Volume 87 fL (80-100); Mean Platelet Volume 10.2 fL (9.1-12.4); Platelet Count 203 K/mm3 (150-400); RDW Coefficient Variation 12.5 % (11.7-14.2); RDW Standard Deviation 39.7 fL (35.1-46.3); White Blood Cell Count 7.84 K/mm3 (4.00-11.30)
[2022-12-23 05:30] LABS: Albumin, Blood 3.2 g/dL (3.4-5.0); Anion Gap 9 mmol/L (6-16); Blood Urea Nitrogen 19 mg/dL (8-24); Bun/Creatinine Ratio 20.7 (12.0-20.0); CO2, Blood 25 mmol/L (21-32); Calcium, Blood 9.2 mg/dL (8.5-10.1); Chloride, Blood 102 mmol/L (98-108); Creatinine, Blood 0.92 mg/dL (0.60-1.20); Glomerular Filtration Rate 93 (60-); Glucose, Blood 134 mg/dL (70-99); Magnesium, Blood 1.9 mg/dL (1.6-2.4); Phosphorus, Blood 3.8 mg/dL (2.5-4.9); Potassium, Blood 3.2 mmol/L (3.5-5.5); Sodium, Blood 136 mmol/L (136-145)
[2022-12-23 05:44] LABS: BAND PERCENT MAN 2 % (0-8); BASOPHILS PERCENT MAN 0 % (0-2); EOSINOPHILS ABSOLUTE MAN 0.23 K/mm3 (0.00-0.68); EOSINOPHILS PERCENT MAN 3 % (0-6); LYMPHOCYTES ABSOLUTE MAN 1.72 K/mm3 (0.84-5.20); LYMPHOCYTES PERCENT MAN 22 % (21-46); METAMYELOCYTE ABSOLUTE MAN 0.39 K/mm3 (0.00-0.00); METAMYELOCYTE PERCENT MAN 5 % (0-0); MONOCYTES ABSOLUTE MAN 1.09 K/mm3 (0.16-1.47); MONOCYTES PERCENT MAN 14 % (4-13); MYELOCYTE ABSOLUTE MAN 0.07 K/mm3 (0.00-0.00); MYELOCYTE PERCENT MAN 1 % (0-0); NEUTROPHILS ABSOLUTE MAN 4.31 K/mm3 (1.96-9.15); SEG NEUTROPHILS PERCENT MAN 53 % (41-73); TOTAL CELLS COUNTED 100
--- NOTE | 2022-12-23 05:53 | NUR ---
PATIENT REMAINS ALERT AND ORIENTED X4, ALTHOUGH SOME CONFUSION NOTED THROUGHOUT THE NIGHT. IV ABTS INFUSED AND SL IN BETWEEN. RLE RED, SWOLLEN AND WARM TO TOUCH. ELEVATED TOLERATED. ABD DISTENDED AND FIRM. PATIENT STATES THIS IS NORMAL. IND IN ROOM. CALLS TO MAKE NEEDS KNOWN. WILL CONT TO MONITOR.
[2022-12-23 07:53] VITALS: BP 145/72
[2022-12-23 14:04] VITALS: BP 161/92
--- NOTE | 2022-12-23 16:08 | NUR ---
SHIFT ASSESSMENT Patient AOx4, independent in the room, supervision with ambulation. RLE red, edematous, painful. Redness extends to inner thigh, area marked. Oxycodone given for pain, PRN effective. This afternoon patient found sitting on the floor. He stated he was walking back to bed and his legs felt weak, so he slide down the side of the bed onto the floor. Patient denied headstrike or injury. Vitals stable & CBG WNL. Patient worked with therapy, and walked [facility]. Tolerated activity. Continuing IV ABX, & PT. Will continue plan of care.
[2022-12-23 19:15] VITALS: BP 120/70
[2022-12-24 04:08] VITALS: BP 109/75
--- NOTE | 2022-12-24 04:54 | NUR ---
SHIFT SUMMARY 62 YR M ADMITTED ON 12/18/22 FOR RLL CELLULITIS/SEVERE SEPSIS. FULL CODE. NO ACUTE CHANGES THIS SHIFT. PT SAT IN RECLINER W/ LEGS ELEVATED FOR SEVERAL HOURS INTO THIS SHIFT. HE WAS ABLE TO GET HIMSELF INTO BED AND GET COMFORTABLE. HE C/O PAIN IN RLE AND WAS MEDICATED PER EMAR. CONTINUING WITH ABX AND PAIN CONTROL.
[2022-12-24 05:46] LABS: Bun/Creatinine Ratio 23.6 (12.0-20.0); Calcium, Blood 9.2 mg/dL (8.5-10.1); Creatinine, Blood 0.81 mg/dL (0.60-1.20); Potassium, Blood 3.8 mmol/L (3.5-5.5)
[2022-12-24 07:18] VITALS: BP 122/64
[2022-12-24 14:42] VITALS: BP 137/70
--- NOTE | 2022-12-24 16:04 | NUR ---
DAYSHIFT SUMMARY No acute changes to patient status, vitals stable, CBGs WNL, no SSI coveraged needed. Plan is to continue IV ABX today & anticipate DC home tomorrow. RLE red/edematous, +2 pitting edema. Steady gait, ambulating independently in room. Oxycodone given 1x for pain, PRN effective. Will continue plan of care.
[2022-12-24 20:39] VITALS: BP 137/78
[2022-12-25 04:02] VITALS: BP 130/76
--- NOTE | 2022-12-25 05:00 | NUR ---
SHIFT SUMMARY 62 YR M ADMITTED ON 12/18/22 FOR RLL CELLULITIS/SEVERE SEPSIS. FULL CODE. NO ACUTE CHANGES THIS SHIFT. PT SAT UP IN THE CHAIR W/ HIS LEGS ELEVATED FOR SEVERAL HOURS THIS SHIFT. HE IS INDEPENDANT IN THE ROOM AND PUT HIMSELF TO BED WHEN HE WAS READY. RLL IS STILL RED. SWOLLEN, AND PAINFUL. PT STATES HE IS ANXIOUS TO GO HOME.
[2022-12-25 07:08] VITALS: BP 128/76
[2022-12-25] MEDS ORDERED: GABA300 PO (11:05)
[2022-12-25] MEDS ORDERED: DOXY100 PO (11:07)
--- NOTE | 2022-12-25 11:30 | NUR ---
DISCHARGE PATIENT DISCHARGED HOME. DISCHARGE INSTRUCTIONS REVIEWED WITH PATIENT. MEDICATIONS CALLED IN TO [facility]. PATIENT INSTRUCTED TO TAKE HIS ANTIBIOTICS UNTIL GONE. PATIENT CONTINUES TO HAVE SOME SWELLING TO RLE COMPARED TO L. PATIENT STATES IT IS LESS PAINFUL TODAY. PROVIDED EDUCATION RELATED TO DIABETES AND SKIN CARE, FLUID BALANCE WITH DIURETICS, SALT INTAKE AND PROCESSED FOODS. IV REMOVED ON TECHNOLOGY PROFESSIONAL BECAUSE OF PAIN. TECHNOLOGY PROFESSIONAL UNABLE TO PLACE ANOTHER IV. IV ANTIBIOTICS HELD PER DR. STAFFORD BECAUSE OF DISCHARGE AND PATIENT TO START PO ANTIBIOTICS AFTER DISCHARGE. BELONGINGS RETURNED TO PATIENT. PATIENT TRANSPORTED OUT VIA WHEELCHAIR. S.O WAITING FOR PATIENT AT PATIENT ENTERANCE.
== END 2022-12-25 12:25 | disposition home or self-care (01) | DRG 872 ==
LOC: ER 01:55 → MEDS 05:49 → PCU 05:49 → MEDS 12-20 14:20
PROVIDERS: Internal Medicine; Student in an Organized Health Care Education/Training Program; ADMIT Student in an Organized Health Care Education/Training Program
DX: A41.9 Sepsis, unspecified organism (principal); N17.9 Acute kidney failure, unspecified; L03.115 Cellulitis of right lower limb; E87.20 Acidosis, unspecified; F11.20 Opioid dependence, uncomplicated; E83.39 Other disorders of phosphorus metabolism; E83.42 Hypomagnesemia; M19.90 Unspecified osteoarthritis, unspecified site; E78.00 Pure hypercholesterolemia, unspecified; G47.33 Obstructive sleep apnea (adult) (pediatric); I87.2 Venous insufficiency (chronic) (peripheral); R65.20 Severe sepsis without septic shock; E11.22 Type 2 diabetes mellitus with diabetic chronic kidney disease; I89.0 Lymphedema, not elsewhere classified; G47.00 Insomnia, unspecified; I12.9 Hypertensive chronic kidney disease with stage 1 through stage 4 chronic kidney disease, or unspecified chronic kidney disease; N18.9 Chronic kidney disease, unspecified; Z98.890 Other specified postprocedural states; Z85.6 Personal history of leukemia; Z98.1 Arthrodesis status; Z88.8 Allergy status to other drugs, medicaments and biological substances; Z79.84 Long term (current) use of oral hypoglycemic drugs; Z79.899 Other long term (current) drug therapy
CPT/HCPCS: 36415; 71045; 73701; 80048; 80053; 80069; 80202; 81001; 82947; 83605; 83735; 85025; 87040; 93005; 93010; 93306; 94660; 94760; 94762; 96365-59; 96366; 96375; 97110; 97116; 97162; 97530; 99285-25; A9270; J0690; J1650; J1815; J1940; J3370; J3411; J3475; J7030; J7050; J7120; Q9967

== ENCOUNTER → 2024-01-01 | Outpatient (CLI) | payer OTHER ==
[~2024-01-01] MED LIST changes: +DOXY100 PO; +GABA300 PO
[2024-01-01 18:48] LABS: Creatinine, Blood 0.95 mg/dL (0.60-1.20)
== END ==
LOC: LAB 15:38 → LAB SHORT 15:38
PROVIDERS: Family Medicine
DX: E11.51 Type 2 diabetes mellitus with diabetic peripheral angiopathy without gangrene (principal); E11.69 Type 2 diabetes mellitus with other specified complication; E11.22 Type 2 diabetes mellitus with diabetic chronic kidney disease; E11.42 Type 2 diabetes mellitus with diabetic polyneuropathy
CPT/HCPCS: 82565; 84520